=== PATIENT | male | born 1985 | race Hispanic/Latino ===

== ENCOUNTER 2018-10-18 01:58 | Emergency (ER) | payer SELFPAY ==
[2018-10-18 02:03] VITALS: BMI 33.7
[2018-10-18] MEDS ORDERED: Hydrogen Peroxide 237 ML SOL TP STA (03:25)
[2018-10-18] MEDS ORDERED: Bacitracin 500 Units/gm Oint Foilpak UD ONE ×2 (03:38→08:45)
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
[2018-10-18] MEDS ORDERED: Tdap Vaccine 0.5 ml Vial (10-64 yrs) IM ONE ×2 (08:31→08:35)
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
[2018-10-18 09:08] VITALS: PULSE 78; RESP 19
[2018-10-18 09:10] VITALS: BP 120/78; TEMP 97
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
[2018-10-20 10:14] VITALS: O2SAT 95
== END 2018-10-18 09:11 | disposition home or self-care (01) ==
LOC: H.ER 01:58
DX: S00.81XA Abrasion of other part of head, initial encounter (principal); S00.83XA Contusion of other part of head, initial encounter; S60.221A Contusion of right hand, initial encounter; Y04.0XXA Assault by unarmed brawl or fight, initial encounter; Y92.89 Other specified places as the place of occurrence of the external cause; J32.9 Chronic sinusitis, unspecified; F10.129 Alcohol abuse with intoxication, unspecified

== ENCOUNTER 2018-11-15 18:47 | Emergency (ER) | payer OTHER ==
[2018-11-15 18:48] VITALS: BMI 33.7
[2018-11-15 18:58] VITALS: O2SAT 96
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
[2018-11-15 21:13] VITALS: BP 145/96; PULSE 76; RESP 18; TEMP 99
== END 2018-11-15 20:33 | disposition home or self-care (01) ==
LOC: H.ER 18:47
DX: F07.81 Postconcussional syndrome (principal); F43.10 Post-traumatic stress disorder, unspecified; Z79.899 Other long term (current) drug therapy